=== PATIENT | female | born 1985 | race Caucasian/White ===

== ENCOUNTER 2021-07-19 08:37 | Outpatient (CLI) | payer BC, SELFPAY ==
[2021-07-19 09:26] LABS: Basophils Percent Auto 0.4 % (0.2-1.2); Eosinophils Absolute Auto 0.1 K/mm3 (0-0.3); Eosinophils Percent Auto 1.4 % (0-4.4); Hematocrit 42.1 % (37.0-47.0); Hemoglobin 14.8 g/dL (12.0-15.0); Immature Granulocyte Absolute 0.01 K/mm3 (0.00-0.031); Immature Granulocyte Percent A 0.2 % (0-0.5); Lymphocytes Absolute Auto 1.86 K/mm3 (0.9-3.2); Lymphocytes Percent Auto 36.1 % (18.3-44.2); Mean Corpuscular HGB Conc 35.2 g/dl (32-36); Mean Corpuscular Hemoglobin 34.6 pg (26-34); Mean Corpuscular Volume 98.4 fl (80-100); Mean Platelet Volume 8.8 fl (7.4-10.4); Monocytes Absolute Auto 0.3 K/mm3 (0.1-0.6); Monocytes Percent Auto 5.6 % (2.6-8.5); Neutrophils Absolute Auto 2.9 K/mm3 (1.3-6.7); Neutrophils Percent Auto 56.3 % (45.5-73.1); Platelet Count Result 325 k/mm3 (150-375); Red Blood Count 4.28 M/mm3 (4.2-5.4); White Blood Count 5.2 K/mm3 (4.5-10.0)
[2021-07-19 09:40] LABS: Alanine Aminotransferase 24 U/L (4-35); Albumin Level 4.8 g/dL (3.5-5.1); Alkaline Phosphatase 51 U/L (38-126); Anion Gap 11 mmol/L (8-16); Aspartate Amino Transferase 30 U/L (14-36); Bilirubin,Total 0.4 mg/dL (0.2-1.3); Blood Urea Nitrogen 10 mg/dL (7-17); Calcium 9.1 mg/dL (8.4-10.2); Carbon Dioxide 23 mmol/L (22-30); Chloride 107 mmol/L (98-107); Cholesterol 156 mg/dL (0-200); Estimated Glomerular Filt Rate > 60; Glucose 94 mg/dL (65-110); HDL Direct 58 mg/dL; Potassium 3.9 mmol/L (3.4-5.0); Sodium 141 mmol/L (137-145); Triglycerides 63 mg/dL (<150)
[2021-07-19 09:51] LABS: LDL Cholesterol Direct 65 mg/dL
== END 2021-07-19 08:38 | disposition home or self-care (01) ==
LOC: ANHLAB 08:39
PROVIDERS: PCP Internal Medicine; Visit Provider Nurse Practitioner
DX: Z13.29 Encounter for screening for other suspected endocrine disorder (principal); Z13.220 Encounter for screening for lipoid disorders
CPT/HCPCS: 36415; 80053; 80061; 85025

== ENCOUNTER 2022-02-25 12:10 | Outpatient (CLI) | payer BC, SELFPAY ==
--- NOTE | ~2022-02-25 | MMUS_ITS ---
EXAMINATION: MM diagnostic yesika BI w jitendra, US breast RT limited HISTORY: Palpable right breast abnormality TECHNIQUE: Additional 3-D tomosynthesis images of the right breast were performed and synthetic 2-D i mages were generated. CAD analysis was submitted and interpreted. High resolution right limited breas t ultrasound was performed. COMPARISON: None BREAST PARENCHYMAL COMPOSITION: The breasts are heterogeneously dense, which may obscure small masses FINDINGS: MAMMOGRAPHIC FINDINGS: There are no suspicious masses, calcifications or architectural distortion in either breast to sugges t malignancy. ULTRASOUND: Limited right breast ultrasound: Normal heterogeneous echotexture without focal solid or cystic mass. IMPRESSION: 1. No evidence for malignancy in either breast. 2. Routine yearly screening mammogram and regular clinical breast examination are recommended. BI-RADS Category 1: Negative Reviewed, dictated and finalized at location A. IMPRESSION: 1. No evidence for malignancy in either breast. 2. Routine yearly screening mammogram and regular clinical breast examination a re recommended. BI-RADS Category 1: Negative
== END 2022-02-25 12:11 | disposition home or self-care (01) ==
LOC: ANHIMG 12:12
PROVIDERS: PCP Internal Medicine; Visit Provider Obstetrics & Gynecology
DX: N64.59 Other signs and symptoms in breast (principal)
CPT/HCPCS: 76642; 77062; 77066; G0279

== ENCOUNTER 2022-05-18 01:35 | Day surgery (SDC) | payer BC, SELFPAY ==
[2022-05-12 15:56] VITALS: BMI 25.9
--- NOTE | 2022-05-12 16:01 | PC.NURSE ---
Report to the Outpatient Waiting Room, entrance under the green pavilion located off [facility], at time 1000 on date 05/18/22. Planned Procedure Time: 1200. Time changes happen often and if your time is changed the preop area will call you the afternoon before. - You and your visitor will be asked to self-screen and do not enter if you have any COVID symptoms. - Only one visitor is requested with a max of two and NO children visitors are allowed at this time. - The patient visitor may be requested to leave or wait in car when not with patient due to distancing restrictions. - A mask is optional within the hospital. Patients may have clear liquids (water, carbonated beverages, clear teas, apple juice) until 3 hours prior to surgery with a maximum of 20 ounces. - No food from midnight until time of surgery Take the following medications with a SIP of water the morning of surgery: TYLENOL IF NEEDED, TOPAMAX Medications to discontinue per physician: VITAMINS Date to take last dose: 05/14/22 Please no make-up, nail japanese, hairspray, perfume, deodorant, or body powder the day of surgery. No jewelry (including any body piercings) or valuables the day of surgery, leave them at home. Please take a shower or bath the night before, or the morning of, surgery with an antibacterial soap. Wear comfortable, loose fitting clothing. - Jewelry must be removed prior to entering the operating room. Rings and piercings that are not removed may be cut off. - The hospital will not accept responsibility for valuables. - Please leave all valuables, including medications, at home the day of surgery. If you are going home after surgery, a licensed production truck driver must drive you home. - NO public transportation without another adult if you receive anesthesia. - We recommend that an adult stay with you for 24 hours following discharge. - We also recommend that you do not drive, make important decision, drink alcoholic beverages, or take any drugs that were not prescribed by your health care provider for at least 24 hours after your discharge time. Follow any additional instructions given to you from your surgeon. If you or anyone in your household have experienced Covid symptoms in the past week, please notify your surgeon or the nurse liaison at the phone number below for possible testing. Telephone instructions given to PT - JHONNY OROSCO and asked if any additional questions and then verbalized understanding. Patient advised to call surgeon office or pre surgery nurse liaison [phone] if any additional questions.
--- NOTE | 2022-05-18 10:46 | WPDHPUPDATE1 ---
History and Physical Update Update Date/Time: 05/18/22 10:46 History and Physical has been reviewed, including an updated exam of the patient. There are NO changes in the patient's condition. Risks, benefits, and alternatives have been discussed and questions answered. Patient agrees to proceed with procedure.
[2022-05-18] MEDS: KETOROLAC 15 MG/ML VIAL (*BKC) IV PUSH (11:00)
[2022-05-18] MEDS: ACETAMINOPHEN 500 MG TABLET 1000 MG PO (11:00)
[2022-05-18] MEDS: LACTATED RINGERS 1,000 ML 30 ML IV CONT (11:10)
[2022-05-18 11:14] VITALS: BP 111/74; PULSE 76; RESP 14; TEMP 36.4; O2SAT 100
--- NOTE | 2022-05-18 11:43 | WPDANESEPPF ---
Anes - Initial Pre Proc Eval Procedure: Operation Date: 05/18/22 12:30 Proposed Procedures p Excisional Biopsy Right Breast Mass - Yoon Gore MD Date/Time: 05/18/22 11:43 Surgeon: Yoon Gore MD Pre Op Diagnosis: Right Breast Mass Patient Data Age: 36 Gender: F Height: 1.55 m Weight: 61.6 kg Last Vital Signs Temp 97.6 F 05/18/22 11:14 Pulse 76 05/18/22 11:14 Resp 14 05/18/22 11:14 BP 111/74 05/18/22 11:14 Pulse Ox 100 05/18/22 11:14 O2 Del Method Room Air 05/18/22 11:14 Allergies Allergy/AdvReac Type Severity Reaction Status Date / Time amoxicillin Allergy Unknown STOMACHE Verified 05/18/22 11:18 PAINS AND DIARRHEA Home Medications Medication Instructions Recorded Confirmed Type acetaminophen 500 mg tablet 500 mg PO Q6H PRN Pain 07/12/21 05/12/22 History fluticasone propionate 50 1 spray intranasal DAILY 07/12/21 05/12/22 History mcg/actuation nasal spray,suspension (Flonase Allergy Relief) loratadine-pseudoephedrine ER 10 1 tablet PO DAILY 07/12/21 05/12/22 History mg-240 mg tablet,extended [id number] (Claritin-D 24 Hour) multivitamin-iron 9 mg-folic acid 2 tablet PO DAILY 07/12/21 05/12/22 History 200 mcg-calcium and minerals tablet (One-A-Day Women's Petites) topiramate 25 mg tablet (Topamax) 25 mg PO BID #180 tabs 08/09/21 05/12/22 Rx Patient hx anesthesia problems: none Family hx anesthesia problems: none Results Review: All pre-operative results and documents have been reviewed as part of the pre-operative evaluation. [facility] Past Medical History Medical History Headache Sinusitis Surgical History Surgical History H/O knee surgery History of endometrial ablation 2018 Family History Family History Father , age 66 Alcoholism Liver cancer Grandparent Alcoholism Diabetes mellitus Hypertension Grandparent Diabetes mellitus Hypertension Cerebrovascular accident Mother Endometriosis Social History Social History Smoking status: Never smoker Alcohol intake: never Alcohol use details: beer Substance use: never Substance use type: does not use Living arrangements: with family Occupation/Education: occupation Additional occupation/education comments: [employer] Spiritual care concerns: No Anes - Eval Final PreProcedure Day of Procedure 05/18/22 11:43 Patient weight: normal Heart: regular rate and rhythm Lungs: clear to auscultation Airway: Mallampati scale class II Neurological: alert and oriented Last oral intake: >/= 8 hours ASA classification: II Emergent: no Anesthetic plan: proceed Anesthesia type and monitoring: general GIVS and standard monitoring Results Review: All pre-operative results and documents have been reviewed as part of the pre-operative evaluation. Informed Consent: The patient's anesthetic plan and its attendant risks and benefits were discussed with the patient/family/POA. Questions were solicited and answers provided to the satisfaction of the patient/family/POA.
[2022-05-18] MEDS: ceFAZolin 2 GM/D5W 50 ML 2 GM/50 ML BAG IVPB (12:49)
[2022-05-18] MEDS: BUPIVACAINE/EPINEPHRINE 0.5% 30 ML VIAL 20 ML INFILTRATE (13:15)
[2022-05-18 13:23] VITALS: BP 103/51; PULSE 93; RESP 18; O2SAT 97
--- NOTE | 2022-05-18 13:49 | W.PM.PROC2 ---
Procedure Note - Detailed Date of Procedure 05/18/22 Pre-op Diagnosis Right Breast Mass Post-op Diagnosis Same Procedure Performed Excisional biopsy right breast mass Surgeon Yoon Gore MD Anesthesia MAC and Local Indications 36-year-old female presenting to the office with a palpable mass in the right upper outer quadrant of her right breast in the area of the tail of Weber. Patient reports the mass has been slowly growing in size and is quite painful. Patient reports certain movements cause shooting pain into her right upper extremity. Findings Multi lobular lipoma in the area of concern, posteriorly was adherent to the underlying muscle , mass measured approximately 3 x 3 cm Description of Procedure The patient was taken to the operating room placed in the supine position. After adequate induction of MAC anesthesia, the patient was prepped and draped in the normal sterile fashion. A time-out was then done to verify the patient's identity, as well as the procedure being performed. I began by localizing the area over the palpable mass. I then made an incision over the mass. This incision was taken down through the dermis and into the subcutaneous tissue. Once to the subcutaneous tissue, I encountered what looked to be a multi lobular lipoma. The mass was noted to be approximately 3 x 3 cm. This lipoma was quite deep and adherent posteriorly to the underlying muscle. I was able to excise this area in full. Once this area was completely excised, no other pathology was grossly noted. I then copiously irrigated the cavity. Further local anesthetic was placed. The subcutaneous tissue was closed with 3-0 Vicryl suture. The skin was closed with 4-0 Monocryl subcuticular suture. The patient tolerated the procedure well and will be transferred to the recovery room in stable condition. Estimated Blood Loss 5 Drains No Packing No Pathology Yes Complications No immediate complications Condition Stable Disposition PACU [facility] Billing Surgery - Charge Forward: Surgery Billing
[2022-05-18 13:50] VITALS: BP 98/51; PULSE 89; RESP 20
[2022-05-18 14:20] VITALS: BP 101/67; PULSE 94; RESP 20
== END 2022-05-18 14:40 | disposition home or self-care (01) ==
PROVIDERS: PCP Internal Medicine; Visit Provider Surgery
PROC: (CPT 21552; principal; 2022-05-18 12:30)
DX: D17.1 Benign lipomatous neoplasm of skin and subcutaneous tissue of trunk (principal)
CPT/HCPCS: 21552; 88305; 88307; A9270; J0690; J1885; J2250; J2704; J3010; J7030; J7120

== ENCOUNTER 2023-04-21 08:00 | Outpatient (CLI) | payer BC, SELFPAY ==
[2023-04-21 13:24] LABS: Basophils Percent Auto 0.2 % (0.2-1.2); Eosinophils Percent Auto 0.8 % (0-4.4); Hematocrit 44.5 % (37.0-47.0); Hemoglobin 14.7 g/dL (12.0-15.0); Immature Granulocyte Absolute 0.01 K/mm3 (0.00-0.031); Immature Granulocyte Percent A 0.2 % (0-0.5); Lymphocytes Percent Auto 24.6 % (18.3-44.2); Mean Corpuscular Hemoglobin 33.6 pg (26-34); Mean Corpuscular Volume 101.8 fl (80-100); Mean Platelet Volume 8.8 fl (7.4-10.4); Monocytes Absolute Auto 0.4 K/mm3 (0.1-0.6); Neutrophils Absolute Auto 3.6 K/mm3 (1.3-6.7); Neutrophils Percent Auto 67.2 % (45.5-73.1); Platelet Count Result 299 k/mm3 (150-375); Red Blood Count 4.37 M/mm3 (4.2-5.4); Red Cell Distribution Width 12.1 % (11.5-14.5); White Blood Count 5.3 K/mm3 (4.5-10.0)
[2023-04-21 13:58] LABS: Alanine Aminotransferase 19 U/L (6-35); Alkaline Phosphatase 50 U/L (38-126); Anion Gap 11 mmol/L (8-16); Aspartate Amino Transferase 46 U/L (14-36); Blood Urea Nitrogen 14 mg/dL (7-17); Calcium 9.5 mg/dL (8.4-10.2); Carbon Dioxide 26 mmol/L (22-30); Chloride 103 mmol/L (98-107); Cholesterol 192 mg/dL (0-200); Estimated Glomerular Filt Rate > 60; Glucose 86 mg/dL (65-110); HDL Direct 71 mg/dL; Potassium 3.7 mmol/L (3.4-5.0); Sodium 140 mmol/L (137-145); Triglycerides 51 mg/dL (<150)
[2023-04-21 14:08] LABS: LDL Cholesterol Direct 92 mg/dL
[2023-04-21 14:21] LABS: Vitamin D 25 Hydroxy 34.3 ng/mL
== END 2023-04-21 08:01 | disposition home or self-care (01) ==
LOC: ANHGOSHLAB 08:01
PROVIDERS: PCP Internal Medicine; Visit Provider Nurse Practitioner
DX: Z13.220 Encounter for screening for lipoid disorders (principal); E55.9 Vitamin D deficiency, unspecified; Z13.29 Encounter for screening for other suspected endocrine disorder
CPT/HCPCS: 36415; 80053; 80061; 82306; 85025

== ENCOUNTER 2024-04-16 07:36 | Outpatient (CLI) | payer BC, SELFPAY ==
--- NOTE | ~2024-04-16 | MM_ITS ---
EXAMINATION: MM screening yesika BI w jitendra HISTORY: Screening TECHNIQUE: Craniocaudal and mediolateral oblique 3-D tomosynthesis images were obtained and synthetic 2-D images were generated. CAD analysis was submitted and interpreted. COMPARISON: 02/2022 BREAST PARENCHYMAL COMPOSITION: The breasts are heterogeneously dense, which may obscure small masses . FINDINGS: Stable parenchymal pattern without suspicious microcalcifications, architectural distortion, discrete masses or significant asymmetry. IMPRESSION: 1. No mammographic evidence of malignancy. 2. Recommend routine screening mammography in one year. BI-RADS Category 1: Negative Reviewed, dictated and finalized at location A. RENE STONE SETTER
--- OUTSIDE RECORDS SUMMARY | 2024-04-23 05:17 | XMS_ITS ---
Author Organization [facility] Address [address] [place] [address] Care Team Providers Care Drip Pumper Name Role Phone Latha Tomlinson Unavailable [phone] Quan Amezcua Unavailable Unavailable [employer], Provider Unavailable Unavailab le Allergies Allergen (clinical drug ingredient) Drug/Non Drug Allergy documented on EMR Reaction Allergy Type Onset Date Status amoxicillin Amoxicillin Unknown Drug Allergy Act mekhi [facility] Encounter Medications Medication SIG (Take, Route, Frequency, Duration) Notes Start Date End Date Status Pneumovax 23 - 0.5 ML INTRAMUSCULAR LY ONCE for 1 DOSE(S) *Please review and pick correct strength-formulati [facility] from [facility]. If intended option is not shown, discontinue and re-order from Quick Search* 09/06/2021 Active Topamax 25 MG 1 tab(s) orally 2 times a day for 30 day(s) Active Flonase Allergy Relief 50 MCG/ACT 1 spray(s) in each nostril once a day Active Cetirizine HCl 10 MG 1 tab(s) orally once a day for 30 days Active Encounters Encounter Location Date Provider Diagnosis [facility] [address] [place] [address] 10/07/2023 Provider ZZ-Migration Other allergic rhinitis J30.89 and Other chronic sinusitis J32.8 Assessments Encounter Date Diagnosis (ICD Code) Assessment Notes Treatment Notes Treatment Clinical Notes Section Notes 10/07/2023 Other allergic rhinitis (ICD-10 - J30.89) 10/07/2023 Other chronic sinusitis (ICD-10 - J32.8) Plan Of Treatment Medication Medication Name Sig Start Date Stop Date Notes Pneumovax 23 - 0.5 ML INTRAMUSCULAR LY ONCE for 1 DOSE(S) 09/06/2021 *Please review and pick correct strength-formulation from [facility] options. If intended option is not shown, discontinue and re-order from Quick Search* Flonase Allergy Relief 50 MCG/ACT 1 spray(s) in each nostril once a day Cetirizine HCl 10 MG 1 tab(s) orally onc e a day for 30 days Progress Notes * Vera BRANHortenciaOB:1985 (38 yo F)Acc No.[id number]:10/07/2023 Patient:?Patrizia BRAN Provider:?Provider Migration :1985???Age:37 Y???Sex:Female D ate:10/07/2023 Address:[address] [place], [place] [address], [id number] Subjective: * Chief Complaints: * ???1. [facility] To [facility] Con version Encounter. * Medical History:? * Medications:?Taking Topamax 25 MG Tablet 1 tab(s) orally 2 times a day * Allergies:?Amoxicillin. Objective: * Vitals:? Assessment: * Assessment: 1.?Other chronic sinusitis - J32.8 (Primary)???2.?Other allergic rhinitis - J30.89??? Plan: * Treatment: 2.?Other allergic rhinitis? Continue Flonase Allergy Relief Suspension, 50 MCG/ACT, 1 spray(s), in each nostril, once a day;?Continue Cetirizine HCl Tablet, 10 MG, 1 tab(s), orally, once a day, 30 days, 30, Refills 0.?? * Billing Information: * Visit Code:? * Procedure Codes:? * Electronic signature of Lia LEGGETT-Migration on 04/23/2024 at 05:16 AM BELT MAKER Sign off status: Pending * Provider:?Provider Migration Date:?10/06 Generated for Eladio lehman/Janny/Ras on:?04/23/2024 05:16 AM BELT MAKER
--- OUTSIDE RECORDS SUMMARY | 2024-04-23 05:17 | XMS_ITS | Patient Health Record ---
Author Organization [facility] Address [address] [place] [address] Care Team Providers Care Union Contract Representative Name Role Phone Latha Tomlinson Unavailable [phone] Quan Amezcua Unavailable Unavailable [employer], Provider Unavailable Unavailab le Allergies Allergen (clinical drug ingredient) Drug/Non Drug Allergy documented on EMR Reaction Allergy Type Onset Date Status amoxicillin Amoxicillin Unknown Drug Allergy Act mekhi Reason For Referral No Information Medications Medication SIG (Take, Route, Frequency, Duration) Notes Start Date End Date Status FLONASE 50 mcg/inh 1 spray(s) in each nostril once a day Active Pneumovax 23 - 0.5 ML INTRAMUSCULAR LY ONCE for 1 DOSE(S) *Please review and pick correct strength-formulati on from [email or web address] options. If intended option is not shown, discontinue and re-order from Quick Search* 09/06/2021 Active TOPAMAX 25 mg 1 tab(s) orally 2 times a day for 30 day(s) Active PNEUMOVAX 23 - 0.5 mL intramuscular ly once for 1 dose(s) 09/06/2021 Active CETIRIZINE 10 mg 1 tab(s) orally once a day for 30 days Active Topamax 25 MG 1 tab(s) orally 2 times a day for 30 day(s) Active Flonase Allergy Relief 50 MCG/ACT 1 spray(s) in each nostril once a day Active Cetirizine HCl 10 MG 1 tab(s) orally once a day for 30 days Active Social History Tobacco Use: Social History Observation Description Date Details (start date - stop date) Never Smoker NA - NA Smoking Smart Form: Question Answer Notes Are you a: never smoker Problems Problem Type SNOMED Code ICD Code Onset Dates Problem Status W/U Status Risk Notes Problem Chronic allergic conjunctivitis (23877824) Other chronic allergic conjunctivitis (H10.45) Active confirmed Problem Allergic rhinitis (70554759) Other allergic rhinitis (J30.89) Active confirmed Problem Allergic rhinitis caused by pollen (disorder) (36700041) Allergic rhinitis due to pollen (J30.1) Active confirmed Problem Allergic rhinitis caused by animal hair and dander (394792715936731) Allergic rhinitis due to animal (cat) (dog) hair and dander (J30.81) Active confirmed Problem Chronic sinusitis (81254198) Other chronic sinusitis (J32.8) Active confirmed Encounters Encounter Location Date Provider Diagnosis [address] [address] 10/07/2023 Provider Elia Other allergic rhinitis J30.89 and Other chronic sinusitis J32.8 Assessments Encounter Date Diagnosis (ICD Code) Assessment Notes Treatment Notes Treatment Clinical Notes Section Notes 10/07/2023 Other allergic rhinitis (ICD-10 - J30.89) 10/07/2023 Other chronic sinusitis (ICD-10 - J32.8) Plan Of Treatment No Information Insurance Providers Payer Name Payer Address Payer Phone Subscriber Number Group Number Insured Name Patient Relationship to Insured Coverage Start Date Coverage End Date [facility] [address] [place] [address] [phone] [id number] Elias Bates Spouse - patient is the spouse of the insured Medical (General) History Surgical History Surgery Date(Month/Year) Ablation 01/31/2018 Knee surgery 05/12/2010 Scope for endometriosis 05/19/2010 Knee surgery 04/06/2011 Knee surgery 03/12/2004 Knee surgery 03/14/2003
== END 2024-04-16 07:37 | disposition home or self-care (01) ==
LOC: ANHIMG 07:37
PROVIDERS: PCP Internal Medicine; Visit Provider Obstetrics & Gynecology
DX: Z12.31 Encounter for screening mammogram for malignant neoplasm of breast (principal)
CPT/HCPCS: 77063; 77067

== ENCOUNTER 2025-02-14 12:24 | Outpatient (CLI) | payer BC, SELFPAY ==
--- OUTSIDE RECORDS SUMMARY | 2023-10-07 16:30 | XMS_ITS ---
Author Organization [facility] [place] ([address]) Address [address] [place] [address] Care Team Providers Care Owner/Operator Name Role Phone Latha Tomlinson Unavailable [phone] Quan Amezcua Unavailable Unavailable [facility], Provider Unavailable Unavailab le Allergies Allergen (clinical drug ingredient) Drug/Non Drug Allergy documented on EMR Reaction Allergy Type Onset Date Status amoxicillin Amoxicillin Unknown Drug Allergy Act mekhi [facility] Encounter Medications Medication SIG (Take, Route, Frequency, Duration) Notes Start Date End Date Status Pneumovax 23 - 0.5 ML INTRAMUSCULAR LY ONCE; Duration: 1 DOSE(S) *Please review and pick correct strength-formulati on from [employer] options. If intended option is not shown, discontinue and re-order from Quick Search* 09/06/2021 Active Topamax 25 MG 1 tab(s) orally 2 times a day; Duration: 30 day(s) Active Flonase Allergy Relief 50 MCG/ACT 1 spray(s) in each nostril once a day Active Cetirizine HCl 10 MG 1 tab(s) orally once a day; Duration: 30 days Active Encounters Encounter Location Date Provider Diagnosis [facility] [place] [address] 10/07/2023 Provider [facility]M[employer] Other allergic rhinitis J30.89 and Other chronic sinusitis J32.8 Assessments Encounter Date Diagnosis (ICD Code) Assessment Notes Treatment Notes Treatment Clinical Notes Section Notes 10/07/2023 Other allergic rhinitis (ICD-10 - J30.89) 10/07/2023 Other chronic sinusitis (ICD-10 - J32.8) Plan Of Treatment Medication Medication Name Sig Start Date Stop Date Notes Pneumovax 23 - 0.5 ML INTRAMUSCULAR LY ONCE; Duration: 1 DOSE(S) 09/06/2021 *Please review and pick correct [facility]. If intended option is not shown, discontinue and re-order from Quick Search* Flonase Allergy Relief 50 MCG/ACT 1 spray(s) in each nostril once a day Cetirizine HCl 10 MG 1 tab(s) orally onc e a day; Duration: 30 days Progress Notes * Vera VANCEHortenciaOB:1985 (39 yo F)Acc No.[id number]:10/07/2023 Patient: Patrizia ELAINE Provider: Ashly Degroot :1985 A ge:37 Y S ex:Female Date:10/07/2023 Address:[address] [place], [place] [address], [id number] Subjective: * Chief Complaints: * 1 . Multum To [facility] Conversion Encounter. * Medical History: * Medications: T aking Topamax 25 MG Tablet 1 tab(s) orally 2 times a day * Allergies: A moxicillin. Objective: * Vitals: Assessment: * Assessment: 1. O ther chronic sinusitis - J32.8 (Primary) 2 . O ther allergic rhinitis - J30.89 Plan: * Treatment: 2. O ther allergic rhinitis Continue Flonase Allergy Relief Suspension, 50 MCG/ACT, 1 spray(s), in each nostril, once a day;?Continue Cetirizine HCl Tablet, 10 MG, 1 tab(s), orally, once a day, 30 days, 30, Refills 0. * Billing Information: * Visit Code: * Procedure Codes: * Electronic signature of Lia LEGGETT-Migration on 02/14/2025 at 12:27 PM CDT Sign off status: Pending * Provider: Ashly Degroot Date: 0 10/07/2023 Generated for Eladio lehman/Janny/Josephsmitting on: 1 12:27 PM CDT
--- NOTE | ~2025-02-14 | MM_ITS ---
EXAMINATION: MM diagnostic yesika BI w jitendra INDICATION: 39-year old female; nonfocal RIGHT Breast pain. COMPARISON: 04/16/2024 and 02/25/2022 TECHNIQUE: Digital breast tomosynthesis CC and MLO of Both breasts and True lateral view of Both breasts were obtained with computer-aided detection to assist in interpretation of the study. FINDINGS: The breasts are heterogeneously dense, which may obscure small masses. There are no suspicious masses, calcifications, architectural distortion or other abnormalities in Both breasts. IMPRESSION: No evidence of malignancy in Both breasts. RECOMMENDATIONS: 1. Clinical management of patient's breast pain. 2. If the patient has high risk factors for developing breast cancer, such as, but not limited dense breasts, positive gene markers, first degree relative with breast cancer which is not tested for Gene markers of greater than 20% lifetime risk of developing breast cancer, supplemental breast MRI screening (ultrasound if MRI is contraindicated), in addition to annual screening mammography, should be considered and discussed with the patient. BI-RADS 2, BENIGN Reviewed, dictated and finalized at location B. IMPRESSION: No evidence of malignancy in Both breasts. RECOMMENDATIONS: 1. Clinical management of patient's breast pain. 2. If the patient has high risk factors for developing breast cancer, such as, but not limited dense breasts, positive gene markers, first degree relative wit h breast cancer which is not tested for Gene markers of greater than 20% lifeti me risk of developing breast cancer, supplemental breast MRI screening (ultraso und if MRI is contraindicated), in addition to annual screening mammography, sh ould be considered and discussed with the patient. BI-RADS 2, BENIGN
--- OUTSIDE RECORDS SUMMARY | 2025-02-14 12:27 | XMS_ITS ---
Author Name LYDIA MAGAÑA D.O. Address [address] [place] [address] Phone [phone] [facility] Care Team Providers Care Invoice Coder Name Role Phone YUSRA MAGAÑA Unavailable [phone] Unavailable Unavailable Unavailable Unavailable Unavailable Unavailable Margaret Pittman Unavailable [phone] Reason for Referral Not Available Allergies, adverse reactions, alerts Allergen Type Reaction Severity Status Onset Date Amoxicillin Allergy to substance (disorder) None Unknow n Active N/A History of medication use Medication Class Instructions Start Date End Date Amitriptyline 25 mg Tab 25 MG ORALLY MARITZA DAY AT BEDTIME 2023-04-21 2023-06-12 Ubrelvy 100 mg Tab 100 MG ORALLY ONCE A S A SINGLE DOSE MAY REPEAT ONCE IN >=2 HOURS AFTER FIRST DOSE IF NEEDED 2023-04-21 2023-06-12 Nurtec 75 mg Tab Disintegrating 75 MG ORALLY ONCE NEEDED FOR MIGRAINE HEADACHE A SINGLE DOSE 2023-04-28 2023-06-12 Azithromycin 250 mg Tab TAKE 2 TABLETS B Y MOUTH TODAY, THEN TAKE 1 TABLET DAILY FOR 4 DAYS DIRECTED 2023-05-13 No Data Available predniSONE 20 mg Tab TAKE 3 TABLETS ORAL ROUTE ONCE DAILY FOR 5 DAYS 2023-05-13 2023-07-20 predniSONE 20 mg Tab take 3 tablets qam (60mg) for 3 days, take 2 tabs (40 mg) for 3 days, take 1 tab (20 mg) for 3 days 2023-06-12 2023-07-20 Rizatriptan Benzoate 10 mg Tab Disintegrating 1 TAB BY MOUTH AT HEADACHE ONSET, MAY REPEAT ONCE AT 2 HRS. MAX 2 DAYS PER WEEK 2023-06-11 2024-03-19 Topiramate 25 mg Tab TAKE 1 TABLET BY MO UTH EVERY DAY 2023-06-11 No Data Available Ajovy 225 mg/1.5ML Solution Auto-injector Subcutaneous inject subq every 28 days 2023-06-122024-02 Doxycycline Hyclate 100 mg Tab 100 MG ORALLY TWICE A DAY 2023-06-19 No Data Availa ble Naratriptan 2.5 mg Tab 1 tab BID for 3 d ays, 1 tab daily for 3 days then stop 2023-07-20 2024-02-09 Nitrofurantoin Monohyd Macro 100 mg Cap TAKE 1 CAPSULE BY MOUTH TWICE DAILY FOR 5 DAYS 2023 No Data Available Candesartan Cilexetil 4 mg Tab TAKE 1 TABLET BY MOUTH TWICE A DAY 2023-12-29 No Data Available predniSONE 10 mg Tab take 4 tablets qam (40mg) for 2 days, take 3 tabs (30 mg) for 2 days, take 2 tab (20 mg) for 2 days the stop 2023-12-29 2024-02-09 Qulipta 60 mg Tab 1 tablet orally daily 2024-02-09 2 Ubrelvy 100 mg Tab 1 tablet orally juan y may take second dose at least 2 hours after first dose as needed 2023-12-29 No Data Available DULoxetine 40 mg Cap delayed rel 1 capsule orally daily 2024-03-19 No Data Available Frovatriptan Succinate 2.5 m g Tab TAKE 1 TABLET ORALLY DAILY NEEDED, MAY TAKE 2ND DOSE AT LEAST 2 HOURS AFTER 1ST DOSE UP TO 2 TABS PER DAY NEEDED 2024-03-19 No Data Available Problem List No known problems Encounters Encounters Type Facility Date of Service Diagnosis/Co mplaint new patient, moderate complexity office visit [facility] 06/12/2023 Chronic migraine w/o aura, not intractable, w/o stat migr high complexity office visit [facility] 07/20/2023 Chronic migraine w/o aura, not intractable, w/o stat migrSnoringHeadache, unspecifiedFamily history of epilepsy and other diseases of the nervous system moderate complexity office visit [facility] 09/08/2023 Chronic migraine w/o aura, not intractable, w/o stat migrSnoringHeadache, unspecifiedFamily history of epilepsy and other diseases of the nervous system high complexity office visit [facility] 12/29/2023 Chronic migraine w/o aura, not intractable, w/o stat migrSnoringHeadache, unspecifiedFamily history of epilepsy and other diseases of the nervous system high complexity office visit [facility] 02/09/2024 Chronic migraine w/ o aura, not intractable, w/o stat migrSnoringHeadache, unspecifiedFamily history of epilepsy and other diseases of the nervous systemCervicalgia moderate complexity office visit [facility] 02/10/2024 Chronic migraine w/o aura, not intractable, w/o stat migrCervicalgiaOther chronic pain moderate complexity office visit [facility] 02/10/2024 Chronic migraine w/o aura, not intractable, w/o stat migrCervicalgiaOther chronic pain moderate complexity office visit [facility] 03/19/2024 Chronic migraine w/ o aura, not intractable, w/o stat migrSnoringHeadache, unspecifiedFamily history of epilepsy and other diseases of the nervous systemCervicalgia moderate complexity office visit [facility] 05/01/2024 Chronic migraine w/ o aura, not intractable, w/o stat migrSnoringHeadache, unspecifiedFamily history of epilepsy and other diseases of the nervous systemCervicalgia moderate complexity office visit [facility] 05/01/2024 Chronic migraine w/ o aura, not intractable, w/o stat migrSnoringHeadache, unspecifiedFamily history of epilepsy and other diseases of the nervous systemCervicalgia moderate complexity office visit [facility] 10/30/2024 Chronic migraine w/ o aura, not intractable, w/o stat migrSnoringHeadache, unspecifiedFamily history of epilepsy and other diseases of the nervous systemCervicalgia moderate complexity office visit [facility] 10/30/2024 Chronic migraine w/ o aura, not intractable, w/o stat migrSnoringHeadache, unspecifiedFamily history of epilepsy and other diseases of the nervous systemCervicalgia Social History Sex Female Gender identity Woman History of Procedures Procedures Service Procedure code Service date Servicing provider Phone# new patient, moderate complexity office visit [id number] 2023-06-12 No Data Available No Data Availa ble high complexity office visit [id number] 2023-07-20 No Data Available No Data Availa ble moderate complexity office visit [id number] 2023-09-08 No Data Available No Data Availa ble high complexity office visit [id number] 2023-12-29 No Data Available No Data Availa ble high complexity office visit [id number] 2024-02-09 No Data Available No Data Availa ble moderate complexity office visit [id number] 2024-02-10 No Data Available No Data Availa ble [employer] [id number] No Data Available No Data Available moderate complexity office visit [id number] 2024-03-19 No Data Available No Data Availa ble moderate complexity office visit [id number] 2024-05-01 No Data Available No Data Availa ble [employer] [id number] No Data Available No Data Available moderate complexity office visit [id number] 2024-10-30 No Data Available No Data Availa ble [employer] [id number] No Data Available No Data Available Functional Status No Information Mental Status No Information Assessments Date of Service Assessments 2023-06-12 07:00:00 Chronic migraine wit hout aura 2023-07-20 13:30:00 Chronic migraine wit hout aura 2023-09-08 06:30:00 Chronic migraine wit hout aura 2023-12-29 12:30:00 Chronic migraine wit hout auraClinical summary (MIPS) printed 2024-02-09 11:30:00 Chronic migraine wit hout auraClinical summary (MIPS) printed 2024-03-19 09:20:00 Chronic migraine wit hout auraClinical summary (MIPS) printed 2024-05-01 12:50:00 Chronic migraine wit hout auraClinical summary (MIPS) printed 2024-10-30 14:00:00 Chronic migraine wit hout auraClinical summary (MIPS) printed Plan of Care Date of Service Plans 2023-06-12 07:00:00 Virtual Visit: Today 's visit was conducted via secured, two- way communication through [employer]. Patient located in [place]. Patient expressed consent with video communication to carry out today's visit. Total time of video encounter was 48 mins that were spent reviewing records, obtaining history, doing a physical exam (via video) as appropriate, documenting in the chart, and any associated orders, all on the day of the visit.Voice dictation software is in use. [employer] variances may occur. Please excuse if any pronouns (he/she/they) or other wording is incorrect. If there is concern in wording, feel free to message back. We discussed the diagnosis today. We discussed the implications of this on future health and management. I reviewed relevant possible side effects and interactions of these medications. This allergy history was addressed in my selection of new medications. The patient was instructed to read packet insert and follow the instructions before taking the medication. We discussed potential referrals, testing and indications as above. For female patients, it was discussed to contact us if they wish to become or are . Additionally, if that applies, they should discuss all medications and treatments with their OBGyn before initiated therapy. Patient instructed to check the portal for updated care plan notes and clinical note.likely primary disorder. +family history, some medication overuse componentSee hpi for list of prior migraine specific preventatives and rescue- To help break the headache cycle with do a prednisone burst starting at 60 mg.Sig: take 3 tablets qam (60mg) for 3 days, take 2 tabs (40 mg) for 3 days, take 1 tab (20 mg) for 3 days. #18. The patient was given Prednisone 20 mg (18 tabs total): starting 60 mg qam, decreasing by 20 mg every three days. Patient instructed to take Famotidine or omeprazole (OTC) during this. Patient instructed to take melatonin for insomnia during this. Side effects including psychosis was discussed.- We will begin topamax 50 mg qhs.Si mg tabs ... 1/2 tab qhs for 1wk, then one tab nightly thereafterWe discussed common sides cognitive issues, tingling of hands/feet. They were instructed to drink 8-10 glasses of water to help prevent Kidney stones. Patient denied history of kidney stones (particularly calcium phosphate stones) or glaucoma.For Females: If used at a high dose (~200 mg/day), Topamax can interfere with contraceptive pills. However, even at lower doses I recommended using a secondary (backup) contraceptive. They should take 0.4 mg of folic acid daily. This was discussed.It was discussed that antiepileptic drugs (AEDs), including topiramate, increase the risk of suicidal thoughts or behavior in patients taking AEDs for any indication. They were counseled to watch for emergence or worsening of depression, suicidal thoughts or behavior, and/or any unusual changes in mood or behavior. Pooled analyses showed clinical trial patients taking an AED had approximately twice the risk of suicidal thoughts or behavior than placebo-treated patients. The estimated incidence rate of suicidal behavior or ideation among 27,863 AED-treated patients was 0.43%, compared to 0.24% among 16,029 placebo-treated patients, representing an increase of approximately 1 patient for every 530 patients treated with an AED.- Patient will begin Ajovy 225 mg q28 days injections to help prevent migraines. Administration was discussed today given the failure of multiple prophylaxis as documented above.Fremanezumab is a humanized monoclonal antibody from [employer] cells to the GCRP ligand.Side effects can include injection site reactions (43-45% vs placebo 38%). Anecdotally arthralgias and constipation are possible. Hypersensitivity reactions are possible.Additionally, we have reviewed that classification for safety of the medication in and has not been established, so that current recommendations include avoidance of the medication 6 months prior to, and during and/or .This has been discussed with the patient.- Patient will begin rizatriptan (Maxalt) 10mg. It is taken the onset of the headache. The patient can repeat after 2 hours if needed. Patient was instructed to not exceed > 2 days per week. Side effects were discussed and include (% over placebo at 10 mg dose): paresthesias 1%, chest tightness/pressure 1%, jaw tightness 1%, nausea 2%, unspecified dizziness 4%, somnolence 4%. Patient instructed not to take if they have or develop cardiac or stroke history unless discussing with the team first.Follow up in 6 weeks. Take magnesium oxide 500mg nightly. If this causes you to have diarrhea or bothersome loose stools, switch to magnesium glycinate. Track your headaches. Consider eileen called Migraine Yoly. 2023-07-20 13:30:00 Virtual Visit: Today 's visit was conducted via secured, two- way communication through [employer]. Patient located in [place]. Patient expressed consent with video communication to carry out today's visit. Total time of video encounter was 41 mins that were spent reviewing records, obtaining history, doing a physical exam (via video) as appropriate, documenting in the chart, and any associated orders, all on the day of the visit.Voice dictation software is in use. [employer] variances may occur. Please excuse if any pronouns (he/she/they) or other wording is incorrect. If there is concern in wording, feel free to message back. We discussed the diagnosis today. We discussed the implications of this on future health and management. I reviewed relevant possible side effects and interactions of these medications. This allergy history was addressed in my selection of new medications. The patient was instructed to read packet insert and follow the instructions before taking the medication. We discussed potential referrals, testing and indications as above. For female patients, it was discussed to contact us if they wish to become or are . Additionally, if that applies, they should discuss all medications and treatments with their OBGyn before initiated therapy. Patient instructed to check the portal for updated care plan notes and clinical note.likely primary disorder. +family history, some medication overuse componentSee hpi for list of prior migraine specific preventatives and rescuecontinue Ajovy every 28 days.increase topiramate to 1.5 tab qhs for 7 days then continue at 2 full tabs nightly thereafter- Patient was prescribed naratriptan (Amerge) 2.5 mg as a bridge/burst therapy to help break the headache cycle. Patient instructed to take 1 tablet twice a day for 3 days and then 1 tablet once a day for 3 days.Side effects discussed and include (% over placebo): atypical sensations/paresthesia 1-3%, GI symptoms 2%, nausea 1%, drowsiness 1%, unspecified dizziness 1%. Patient instructed to not take the medication if history of cardiac or stroke history unless discussed with the team first.Patient instructed not take other triptan or ergot during this time period (for example, Imitrex, Maxalt, Amerge, Relpax, Migranal, etc)Naratriptan Burstnaratriptan (Amerge) 2.5 mgTake 1 tablet twice a day for 3 days.Take 1 tablet once a day for 3 days.Side effects include (% over placebo): atypical sensations 1-3%, nausea 1%, drowsiness 1%, unspecified dizziness 1%.Do not take the medication if history of heart or stroke history unless discussed with the headache team first.If you begin to have heavy sweating, diarrhea, severe muscle stiffness, agitation after taking this medication, then stop this medication and message me before starting again. Do not take on the same day as other triptans (maxalt, relpax, etc).continue rizatriptan as primary headache rescue. do not use in the same 24 hour period as naratriptan dosing.Follow up in 6 weeks. 2023-09-08 06:30:00 Virtual Visit: Today 's visit was conducted via secured, two- way communication through [employer]. Patient located in [place]. Patient expressed consent with video communication to carry out today's visit. Total time of video encounter was 27 mins that were spent reviewing records, obtaining history, doing a physical exam (via video) as appropriate, documenting in the chart, and any associated orders, all on the day of the visit.Voice dictation software is in use. [employer] variances may occur. Please excuse if any pronouns (he/she/they) or other wording is incorrect. If there is concern in wording, feel free to message back. We discussed the diagnosis today. We discussed the implications of this on future health and management. I reviewed relevant possible side effects and interactions of these medications. This allergy history was addressed in my selection of new medications. The patient was instructed to read packet insert and follow the instructions before taking the medication. We discussed potential referrals, testing and indications as above. For female patients, it was discussed to contact us if they wish to become or are . Additionally, if that applies, they should discuss all medications and treatments with their OBGyn before initiated therapy. Patient instructed to check the portal for updated care plan notes and clinical note.likely primary disorder. +family history, some medication overuse componentSee hpi for list of prior migraine specific preventatives and rescuecontinue Ajovy every 28 days.continue topiramate 100mg nightlycontinue rizatriptan as primary headache rescue. do not use in the same 24 hour period as naratriptan dosing.Okay to use rizatriptan as mini burst once daily starting 2-3 days prior to injection due date. 2023-12-29 12:30:00 likely primary disor brenda. +family history, some medication overuse componentSee hpi for list of prior migraine specific preventatives and rescuecontinue Ajovy every 28 days.continue topiramate 50mg nightlycontinue rizatriptan as primary headache rescue.Start candesartan 4mg daily. watch for orthostatic dizziness. Hydrate well.intramuscular injections (4mg dexamethasone, ketorolac 30mg, and ondansetron 4mg administered today.Prednisone 10 mg - Burst/BridgeTo help break the headache cycle,Days 1-2: take 4 in the morningDays 3-4: take 3 in the morningDays 6-7: take 2 in the morningThen stopTake with either Famotidine or Omeprazole OTC to prevent acid reflex.Take melatonin 3-6 mg bedtime to counter insomnia. Discuss with me if you are diabetic.- For abortive therapy, the patient was prescribed for abortive therapy ubrogepant (Ubrelvy) 100 mg tablet (CGRP receptor antagonist). There are 16 pills a month. Patient was instructed to take 1 pill at headache onset, may repeat again in 2 hours. Up to four days a week.Side effects include (% over placebo): nausea 0-2%, somnolence 1-2%, dry mouth 0-1%. Ubrogepant is affected by the CY system. Inducers (Dilantin, Carli Wart, etc) an decrease the ubrogepant levels and loss of efficacy is expected. Weak and moderate Inhibitors (verapamil, cyclosporine, ciprofloxacin, fluconazole, grapefruit juice, fluvoxamine/Luvox, etc) can increase levels and recommended to consider a dose adjustment. Strong inhibitors (ketoconazole, clarithromycin) is contraindicated unless risk/benefits are assessed.Ubrelvy (ubrogepant) 100 mgFor abortive therapy,We will start Ubrelvy 100 mg tablet. There are 16 pills a month.Take 1 pill at headache onset. May repeat once in 2 hours. May take up to 3 days a week. May cause nausea in 0-4% and somnolence in 1-2%.Inform our team if you are using medications such as ketoconazole, verapamil, ciprofloxacin, Dilantin, Carli's Wart or drink grapefruit juice on a regular.If sent to [facility] [address], [place] [address] follow up in 6-8 weeks, virtual ok43 minutes were spent reviewing records, obtaining history, doing a physical exam as appropriate, documenting in the chart, and any associated orders, all on the day of the visit. Voice dictation software is in use. [employer] variances may occur. Please excuse if any pronouns (he/she/they) or other wording is incorrect. If there is concern in wording, feel free to message back. We discussed the diagnosis today. We discussed the implications of this on future health and management. Stressed importance of the plan. I reviewed relevant possible side effects and interactions of these medications. This allergy history was addressed in my selection of new medications. The patient was instructed to read packet insert and follow the instructions before taking the medication. We discussed potential referrals, testing and indications as above. Patient was instructed that it is their responsiblity to call to schedule (and follow through) with their testing. If they do not hear from our office in 1-2 weeks from the date of their testing, they were instructed that they need to contact our office for results. For female patients, it was discussed to contact us if they wish to become or are . Additionally, if that applies, they should discuss all medications and treatments with their OBGyn before initiated therapy. Patient instructed to check the portal for updated care plan notes and clinical note. 2024-02-09 11:30:00 likely primary disor brenda. +family history, some medication overuse componentSee hpi for list of prior migraine specific preventatives and rescuecontinue Ajovy every 28 days.continue topiramate 50mg nightlycontinue rizatriptan as primary headache rescue.Increase candesartan to 4mg BID.scheduling b/l ONB/SONB for 02/09- For prevention, the patient was prescribed atogepant (Qulipta) 60 mg daily (CGRP receptor antagonist).The gepant class can be seen in preventive therapy or abortive therapy (and in some cases both). Side effects include (>4% over placebo): nausea, constipation, fatigue.Atogepant is affected by the CY system. Inducers (Dilantin, Carli Wart, etc) an decrease the levels and loss of efficacy is expected. Weak and moderate inhibitors (verapamil, cyclosporine, ciprofloxacin, fluconazole, grapefruit juice, fluvoxamine/Luvox, etc) can increase levels and recommended to consider a dose adjustment (although many not be necessary), such as 30 mg. Strong inhibitors (ketoconazole, clarithromycin) is contraindicated unless risk/benefits are assessed. Severe renal disease and ESRD typically will consider 10 mg. Consider to 10 or 30 mg when used with OATP inhibitors (various antivirals, gemfibrozil, erythromycin, clarithromycin).Atogepant (Qulipta) 60 mgThis is a once a day medication to help prevent headaches. Take one pill once a day.Side effects include nausea, constipation, fatigue.If you are on medications such as follows, please let me know. Dilantin, Carli Wart, verapamil, cyclosporine, ciprofloxacin, fluconazole, grapefruit juice, fluvoxamine/Luvox, ketoconazole, clarithromycin, various antivirals, gemfibrozil, erythromycin, clarithromycin.If sent to [facility] [id number] [place] [address] [address], [place] [phone] minutes were spent reviewing records, obtaining history, doing a physical exam as appropriate, documenting in the chart, and any associated orders, all on the day of the visit. Voice dictation software is in use. [employer] variances may occur. Please excuse if any pronouns (he/she/they) or other wording is incorrect. If there is concern in wording, feel free to message back. We discussed the diagnosis today. We discussed the implications of this on future health and management. Stressed importance of the plan. I reviewed relevant possible side effects and interactions of these medications. This allergy history was addressed in my selection of new medications. The patient was instructed to read packet insert and follow the instructions before taking the medication. We discussed potential referrals, testing and indications as above. Patient was instructed that it is their responsiblity to call to schedule (and follow through) with their testing. If they do not hear from our office in 1-2 weeks from the date of their testing, they were instructed that they need to contact our office for results. For female patients, it was discussed to contact us if they wish to become or are . Additionally, if that applies, they should discuss all medications and treatments with their OBGyn before initiated therapy. Patient instructed to check the portal for updated care plan notes and clinical note. 2024-03-19 09:20:00 likely primary disor brenda. +family history, some medication overuse componentSee hpi for list of prior migraine specific preventatives and rescuecontinue Ajovy every 28 days.continue topiramate 50mg nightlycontinue rizatriptan as primary headache rescue.Increase candesartan to 4mg BID.scheduling b/l ONB/SONB for 02/09- For prevention, the patient was prescribed atogepant (Qulipta) 60 mg daily (CGRP receptor antagonist).The gepant class can be seen in preventive therapy or abortive therapy (and in some cases both). Side effects include (>4% over placebo): nausea, constipation, fatigue.Atogepant is affected by the CY system. Inducers (Dilantin, Carli Wart, etc) an decrease the levels and loss of efficacy is expected. Weak and moderate inhibitors (verapamil, cyclosporine, ciprofloxacin, fluconazole, grapefruit juice, fluvoxamine/Luvox, etc) can increase levels and recommended to consider a dose adjustment (although many not be necessary), such as 30 mg. Strong inhibitors (ketoconazole, clarithromycin) is contraindicated unless risk/benefits are assessed. Severe renal disease and ESRD typically will consider 10 mg. Consider to 10 or 30 mg when used with OATP inhibitors (various antivirals, gemfibrozil, erythromycin, clarithromycin).Atogepant (Qulipta) 60 mgThis is a once a day medication to help prevent headaches. Take one pill once a day.Side effects include nausea, constipation, fatigue.If you are on medications such as follows, please let me know. Dilantin, Carli Wart, verapamil, cyclosporine, ciprofloxacin, fluconazole, grapefruit juice, fluvoxamine/Luvox, ketoconazole, clarithromycin, various antivirals, gemfibrozil, erythromycin, clarithromycin.If sent to [id number] [place] [address] [address], [place] [address] Prevention:Start duloxetine 30mg daily. Try to stay on this for at least 2 weeks. If on this for over 6 weeks, talk to me before you have to stop this. Increase candesartan to 8mg twice daily. Start magnesium glycinate 400-800mg nightly. [employer] is a reliable brand. Rescue: Frovatriptan: take at the onset of headache. Can repeat after 2 hours if needed. Do not exceed >2 days per week.If you take this too often, it can lead to rebound headaches, which will end up making the headaches worse in the long run.If you have a history of heart attack or stroke or develop these, discuss with one of the headache physicians before taking this medication. If you begin to have heavy sweating, diarrhea, severe muscle stiffness, agitation after taking this medication, then stop this medication and message me before starting again. Do not take on the same day as other triptans (maxalt, relpax, etc). Side effects can include sedation and tightness in jaw/neck.Track your headaches and cycle. Consider eileen called migraine yoly or head eileen. Follow up in 6 weeks, virtual ok 2024-05-01 12:50:00 likely primary disor brenda. +family history, some medication overuse componentSee hpi for list of prior migraine specific preventatives and rescueDecrease topiramate to 25mg nightlycontinue frovatriptan/Ubrelvy as primary headache rescue.increase duloxetine to 40mg per day. continue candsartan 8mg BID.ok to d/c Qulipta.follow up in 3-4 months or sooner if issues ariseVirtual Visit: Today's visit was conducted via secured, two-way communication through [employer]. Patient located in [place]. Patient expressed consent with video communication to carry out today's visit. Total time of video encounter was 32 mins that were spent reviewing records, obtaining history, doing a physical exam (via video) as appropriate, documenting in the chart, and any associated orders, all on the day of the visit.Voice dictation software is in use. [employer] variances may occur. Please excuse if any pronouns (he/she/they) or other wording is incorrect. If there is concern in wording, feel free to message back. We discussed the diagnosis today. We discussed the implications of this on future health and management. I reviewed relevant possible side effects and interactions of these medications. This allergy history was addressed in my selection of new medications. The patient was instructed to read packet insert and follow the instructions before taking the medication. We discussed potential referrals, testing and indications as above. For female patients, it was discussed to contact us if they wish to become or are . Additionally, if that applies, they should discuss all medications and treatments with their OBGyn before initiated therapy. Patient instructed to check the portal for updated care plan notes and clinical note. 2024-10-30 14:00:00 likely primary disor brenda. +family history, some medication overuse componentSee hpi for list of prior migraine specific preventatives and rescueDecrease topiramate to 25mg nightlycontinue frovatriptan/Ubrelvy as primary headache rescue.increase duloxetine to 40mg per day. continue candsartan 8mg BID.ok to d/c Qulipta.follow up in 3-4 months or sooner if issues ariseVirtual Visit: Today's visit was conducted via secured, two-way communication through [employer]. Patient located in [place]. Patient expressed consent with video communication to carry out today's visit. Total time of video encounter was 32 mins that were spent reviewing records, obtaining history, doing a physical exam (via video) as appropriate, documenting in the chart, and any associated orders, all on the day of the visit.Voice dictation software is in use. [employer] variances may occur. Please excuse if any pronouns (he/she/they) or other wording is incorrect. If there is concern in wording, feel free to message back. We discussed the diagnosis today. We discussed the implications of this on future health and management. I reviewed relevant possible side effects and interactions of these medications. This allergy history was addressed in my selection of new medications. The patient was instructed to read packet insert and follow the instructions before taking the medication. We discussed potential referrals, testing and indications as above. For female patients, it was discussed to contact us if they wish to become or are . Additionally, if that applies, they should discuss all medications and treatments with their OBGyn before initiated therapy. Patient instructed to check the portal for updated care plan notes and clinical note.
== END 2025-02-14 12:25 | disposition home or self-care (01) ==
LOC: ANHFOHIMG 12:26
PROVIDERS: PCP Internal Medicine; Visit Provider Surgery
DX: N64.4 Mastodynia (principal)
CPT/HCPCS: 77062; 77066; G0279